=== PATIENT | male | born 1995 | race Two or more races ===

== ENCOUNTER 2023-11-29 14:24 | Emergency (ER) | payer SELFPAY ==
[~2023-11-29] VITALS: Ht 182.9 cm; Wt 100.0 kg
[2023-11-29 15:28] VITALS: BP 146/77; PULSE 100; RESP 16; TEMP 97; O2SAT 97
[2023-11-29] MEDS: TETANUS-DIPTH-ACEL PERTUSSIS 0.5ML SYR Tdap IM ONE (15:48)
[2023-11-29] MEDS ORDERED: AMOX500T86 PO (16:24)
[2023-11-29] MEDS ORDERED: NAPR-746 PO (16:24)
== END 2023-11-29 16:29 | disposition home or self-care (01) ==
LOC: ER 14:24
DX: S61.511A Laceration without foreign body of right wrist, initial encounter (principal); S61.411A Laceration without foreign body of right hand, initial encounter; S61.431A Puncture wound without foreign body of right hand, initial encounter; W54.0XXA Bitten by dog, initial encounter; Z88.1 Allergy status to other antibiotic agents; Z88.8 Allergy status to other drugs, medicaments and biological substances; Y93.89 Activity, other specified; Y92.89 Other specified places as the place of occurrence of the external cause; Y99.8 Other external cause status
CPT/HCPCS: 12002; 73130; 90471; 90715